=== PATIENT | female | born 1970 | race Caucasian/White ===

== ENCOUNTER 2019-10-22 05:45 | Day surgery (SDC) | payer OTHER ==
[~2019-10-22 05:45] MED LIST: AVAPRO300 MG PO
== END 2019-10-22 13:20 | disposition home or self-care (01) ==
LOC: CIR.AMB 05:45
PROVIDERS: ATTEND Obstetrics & Gynecology Maternal & Fetal Medicine
DX: N84.0 Polyp of corpus uteri (principal)